=== PATIENT | female | born 1970 | race African-American/Black ===

== ENCOUNTER 2017-06-26 12:56 | Emergency (ER) | payer BC ==
--- NOTE | 2017-06-26 17:12 | Emergency Department Report ---
ED Headache HPI - General Chief Complaint: Headache Stated Complaint: HEADACHE Time Seen by Provider: 06/26/17 17:08 - History of Present Illness Initial Comments: 46-year-old female past medical history high cholesterol, GERD presents with complaint of 3 days of right-sided intermittent throbbing headache. Patient denies any associated photophobia or phonophobia fever or chills. States she has had some intermittent nausea associated with it but denies any vomiting. Denies increased urinary frequency dysuria or hematuria. Patient is fully lucid awake alert and oriented 3. Denies any recent head trauma. Patient is [place]-speaking which I speak fluently. Denies chest pain palpitations abdominal pain shortness of breath up her lower extremity palpitations. States she has been taking Tylenol and Motrin at home with minimal relief of headache. States headache is slightly worse when she moves her head and she feels tension in her right upper lateral neck. Timing/Duration: episodic, waxing and waning Quality: moderate Head Injury Location: temporal (right sided) Associated Symptoms: denies symptoms Allergies/Adverse Reactions: Allergies No Known Allergies Allergy (Unverified 06/26/17 13:03) Home Medications: Ambulatory Orders Butalb/Acetamin/Caff 50-325-40 [Fioricet] 1 tab PO Q6HR PRN #12 tab 06/26/17 ED Review of Systems ROS: Stated complaint: HEADACHE Other details as noted in HPI Constitutional: denies: chills, fever Eyes: denies: eye pain, eye discharge, vision change ENT: denies: ear pain, throat pain Respiratory: denies: cough, shortness of breath, wheezing Cardiovascular: denies: chest pain, palpitations Endocrine: no symptoms reported Gastrointestinal: denies: abdominal pain, nausea, diarrhea Genitourinary: denies: urgency, dysuria, discharge Musculoskeletal: denies: back pain, joint swelling, arthralgia Skin: denies: rash, lesions Neurological: headache. denies: weakness, paresthesias Psychiatric: denies: anxiety, depression Hematological/Lymphatic: denies: easy bleeding, easy bruising ED Past Medical Hx - Past Medical History Additional medical history: elevated cholesterol - Surgical History Hx Cholecystectomy: Yes - Social History Smoking Status: Never Smoker Substance Use Type: None - Medications Home Medications: Home Medications Medication Instructions Recorded Confirmed Last Taken Type Butalb/Acetamin/Caff 50-325-40 1 tab PO Q6HR PRN #12 tab 06/26/17 Unknown Rx [Fioricet] ED Physical Exam - General Limitations: No Limitations General appearance: alert, in no apparent distress - Head Head exam: Present: atraumatic, normocephalic - Eye Eye exam: Present: normal appearance, PERRL, EOMI - ENT ENT exam: Present: mucous membranes moist - Neck Neck exam: Present: normal inspection - Respiratory Respiratory exam: Present: normal lung sounds bilaterally. Absent: respiratory distress - Cardiovascular Cardiovascular Exam: Present: regular rate, normal rhythm. Absent: systolic murmur, diastolic murmur, rubs, gallop - GI/Abdominal GI/Abdominal exam: Present: soft, normal bowel sounds - Extremities Exam Extremities exam: Present: normal inspection - Back Exam Back exam: Present: normal inspection - Neurological Exam Neurological exam: Present: alert, oriented X3, CN II-XII intact, normal gait - Expanded Neurological Exam Expanded Patient oriented to: Present: person, place, time Cranial nerves: EOM's Intact: Normal, Nystagmus: Normal Cerebellar function: Finger to Nose: Normal, Heel to Garcia: Normal, Romberg: Normal Sensory exam: Upper Extremity Light Touch: Normal, Lower Extremity Light Touch: Normal Motor strength exam: RUE: 5, LUE: 5, RLE: 5, LLE: 5 Best Eye Response ([place]): (4) open spontaneously Best Motor Response ([place]): (6) obeys commands Best Verbal Response (Tete): (5) oriented Tete Total: 15 - Psychiatric Psychiatric exam: Present: normal affect, normal mood - Skin Skin exam: Present: warm, dry, intact, normal color. Absent: rash ED Course Vital Signs 06/26/17 06/26/17 06/26/17 12:58 19:15 19:23 Temperature 98 F 98.6 F Pulse Rate 92 H 77 Respiratory 18 18 18 Rate Blood Pressure 114/69 Blood Pressure 116/67 [Right] O2 Sat by Pulse 98 100 Oximetry ED Medical Decision Making - Medical Decision Making A/P: Migraine headache 1-patient has had some resolution of headache with Reglan and Benadryl. Currently 07/17. 2-no clinical neurological deficits on exam. Cranial nerves III through XII intact. Patient ambulatory without assistance 3-short course Fioricet 4-I advised patient to follow up with primary care and neurology Critical care attestation.: If time is entered above; I have spent that time in minutes in the direct care of this critically ill patient, excluding procedure time. ED Disposition Clinical Impression: Acute headache Qualifiers: Headache type: tension-type Intractability: not intractable Qualified Code(s): G44.209 - Tension-type headache, unspecified, not intractable Disposition: DC- TO HOME OR SELFCARE Is pt being admited?: No Does the pt Need Aspirin: No Condition: Stable Instructions: Migraine Headache (ED), Tension Headache (ED), Acute Headache (ED ) Prescriptions: Butalb/Acetamin/Caff 50-325-40 [Fioricet] 1 tab PO Q6HR PRN #12 tab PRN Reason: Headache Referrals: [facility] [Provider Group] - 3-5 Days NIDA MCCORD MD [Staff Physician] - 3-5 Days Forms: Work/School Release Form(ED) Time of Disposition: 19:00 Print Language: NIGERIEN
[2017-06-26] MEDS ORDERED: REGLAN IV ONE (17:13)
[2017-06-26] MEDS ORDERED: BENADRYL IV ONE (17:13)
[2017-06-26] MEDS ORDERED: TORADOL IV ONE (17:13)
--- NOTE | 2017-06-26 17:15 | Emergency Department Report ---
Blank Doc - Documentation Documentation: 46 year old female who presents to the hospital with complaints of intermittent right-sided headache 3 days. Patient occurs every several minutes associated with nausea. No vomiting, fever, neck pain. No previous history of headache. No trauma. Orders IV Reglan, Benadryl, Toradol CT head Midlevel to evaluate
--- NOTE | 2017-06-26 18:26 | Cat Scan Report ---
FINAL REPORT PROCEDURE: CT HEAD/BRAIN WO CON TECHNIQUE: Computerized tomography of the head was performed without contrast material. HISTORY: right sided headache COMPARISON: No prior studies are available for comparison. FINDINGS: No CT evidence of intracranial mass, hemorrhage, acute territorial infarction, or hydrocephalus. The intracranial arteries are symmetric in density. Calvarium is intact. Visualized paranasal sinuses and mastoids are aerated. IMPRESSION: No CT evidence of acute abnormality
[2017-06-26] MEDS ORDERED: FIORICET PO ONE (19:00)
[2017-06-26 19:27] VITALS: BP 116/67
== END 2017-06-26 19:59 | disposition home or self-care (01) ==
LOC: ED 12:56
DX: G44.209 Tension-type headache, unspecified, not intractable (principal)
CPT/HCPCS: 70450; 96374; 96375; 99283; J1200; J1885; J2765